=== PATIENT | female | born 1985 | race Caucasian/White ===

== ENCOUNTER 2017-11-03 12:51 | Emergency (ER) | payer OTHER ==
[2017-11-03 12:56] VITALS: BP 133/61; BMI 22.8
--- NOTE | 2017-11-03 13:39 | DR.GENAD ---
HPI - PCP Primary Care Physician: RELL - HPI Comment HPI Comment: Pt concerned she has the flu but doesn't want to take meds unless she is +. Pt 20 wks . Tamiflu cleared for her by her OB. - Complaint/Symptoms Chief Complaint:: PT C/O FEVER, CHILLS, AND BODY ACHES. PT STATES HER SON HAS BEEN DX WITH THE FLU YESTERDAY. PT IS ALSO 20 WKS . - Source History Provided: Patient - Mode of Arrival Mode of Arrival: Ambulatory - Timing Onset of Chief Complaint: 11/02/17 PMH - PMH Past Medical History: Yes (20 wks ) Past Medical History Comment: PELVIC MASS Past Surgical History: Yes Past Surgical History Comment: PELVIC MASS - Family History History of Family Medical Conditions: No - Social History Does any household member use tobacco: No Alcohol Use: None Do you use any recreational Drugs:: No Lives With: Family Lives Where: Home - infectious screening In the last 2 months have you had wt loss of >10#?: NO Have you had fever, night sweats or hemotysis?: No Have you traveled outside the country in the last 6 months?: No Isolation: Standard ROS - Review of Systems Constitutional: Chills, Fever, Malaise, Loss of Appetite Eyes: No Symptoms Reported ENTM: Nose Congestion, Throat Pain Respiratoy: Dry Cough Cardiovascular: No Symptoms Reported Gastrointestinal/Abdominal: No Symptoms Reported Genitourinary: No Symptoms Reported Neurological: Headache Musculoskeletal: See HPI, Joint Pain Integumentary: No Symptoms Reported Hematologic/Lymphatic: No Symptoms Reported Endocrine: No Symptoms Reported Psychiatric: No Symptoms Reported All Other Systems: Reviewed and Negative PE - Vital Signs Vitals: Temperature 99.0 F Pulse Rate 87 Respiratory Rate 20 Blood Pressure 133/61 O2 Sat by Pulse Oximetry 100 - General Limitations: No Limitations General Appearance: Alert, In No Apparent Distress - Head Head Exam: Normal Inspection - Eyes Eye exam: Normal Appearance - ENT ENT Exam: Normal Exam, Normal Oropharynx TM/Canal Exam: Bilateral Normal Nose Exam: Normal Nose Exam Mouth Exam: Normal Inspection Throat Exam: Normal Inspection. negative: Tonsillar Erythema, Tonsillar Exudate - Neck Neck Exam: Full ROM, Trachea Midline - Chest Chest Inspection: Normal Inspection - Respiratory Respiratory Exam: Normal Lung Sounds Bilat. negative: Accessory Muscle Use Respiratory Exam: Bilateral Clear to Auscultation - Cardiovascular Cardiovascular Exam: Regular Rate, Normal Rhythm - Abdominal Exam Abdominal Exam: Normal Inspection, Normal Bowel Sounds, Soft, Other (gravid). negative: Tenderness - Extremities Extremities Exam: Normal Inspection, Full ROM, Normal Capillary Refill. negative: Edema - Neurologic Neurological Exam: Alert, Oriented X3 - Psychiatric Psychiatric Exam: Normal Affect, Normal Mood - Skin Skin Exam: Warm, Dry, Intact ROR - Labs Reviewed Laboratory Results Reviewed?: Yes (flu screen neg) Laboratory: Influenza Type A (PCR) Negative (NEGATIVE) 11/03/17 13:07 Influenza Type B (PCR) Negative (NEGATIVE) 11/03/17 13:07 - Diagnosis Discharge Problem: Acute viral syndrome - Discharge Plan Disposition: HOME, SELF-CARE Condition: Stable Prescriptions: Oseltamivir Phosphate [Tamiflu] 75 mg PO BID #10 cap - Follow ups/Referrals Follow ups/Referrals: FLAKITO ZACARIAS [Primary Care Provider] - 3 days - Instructions
== END 2017-11-03 14:22 | disposition home or self-care (01) ==
LOC: ER 13:01
DX: B34.9 Viral infection, unspecified (principal); Z3A.20 20 weeks gestation of pregnancy
CPT/HCPCS: 87502; 99282

== ENCOUNTER 2018-01-29 19:07 | Emergency (ER) | payer OTHER ==
[2018-01-29 19:17] VITALS: BMI 26.6
[2018-01-29 19:44] LABS: BILIRUBIN,URINE NEGATIVE (NEGATIVE); BLOOD/HEMOGLOBIN,URINE NEGATIVE (NEGATIVE); GLUCOSE, URINE NEGATIVE (NEGATIVE); KETONES,URINE NEGATIVE (NEGATIVE); LEUKOCYTE ESTERASE ,URINE 1+ (NEGATIVE); NITRITES,URINE NEGATIVE (NEGATIVE); PROTEIN,URINE NEGATIVE (NEGATIVE); UROBILINOGEN,URINE NORMAL (NORMAL)
[2018-01-29 19:52] LABS: APPEARANCE,URINE CLEAR (CLEAR); BACTERIA,URINE TRACE /HPF (NEGATIVE); COLOR,URINE YELLOW (YELLOW); RBC,URINE NONE SEEN /HPF (NONE SEEN); SQUAMOUS EPITHELIAL CELL,UR MANY /HPF (NEGATIVE)
[2018-01-29 20:15] LABS: AMNISURE ROM TEST NO MEMBRANES RUPTURE (NO RUPTURE)
[2018-01-29 20:35] VITALS: BP 107/60
== END 2018-01-29 20:35 | disposition home or self-care (01) ==
LOC: ER 19:25
DX: O60.03 Preterm labor without delivery, third trimester (principal); Z3A.32 32 weeks gestation of pregnancy
CPT/HCPCS: 81001; 84112; 99284

== ENCOUNTER 2018-02-23 16:17 | Emergency (ER) | payer OTHER ==
[2018-02-23 16:42] VITALS: BP 113/64; BMI 26.8
[2018-02-23 17:14] LABS: BILIRUBIN,URINE NEGATIVE (NEGATIVE); BLOOD/HEMOGLOBIN,URINE 1+ (NEGATIVE); GLUCOSE, URINE 2+ (NEGATIVE); KETONES,URINE NEGATIVE (NEGATIVE); LEUKOCYTE ESTERASE ,URINE NEGATIVE (NEGATIVE); NITRITES,URINE NEGATIVE (NEGATIVE); PROTEIN,URINE NEGATIVE (NEGATIVE); UROBILINOGEN,URINE NORMAL (NORMAL)
[2018-02-23 17:38] LABS: APPEARANCE,URINE CLEAR (CLEAR); BACTERIA,URINE NEGATIVE /HPF (NEGATIVE); COLOR,URINE YELLOW (YELLOW); RBC,URINE 0-2 /HPF (NONE SEEN); SQUAMOUS EPITHELIAL CELL,UR MODERATE /HPF (NEGATIVE)
== END 2018-02-23 18:49 | disposition home or self-care (01) ==
LOC: ER 16:52
DX: O60.00 Preterm labor without delivery, unspecified trimester (principal); Z3A.00 Weeks of gestation of pregnancy not specified
CPT/HCPCS: 81001; 99284

== ENCOUNTER 2018-03-19 06:17 | Inpatient (IN) ==
[2018-03-19] MEDS ORDERED: LR 1000 ML IV 1,000 ML IV ONE (06:45)
[2018-03-19] MEDS ORDERED: ANCEF IV ONE (06:46)
[2018-03-19] MEDS ORDERED: D5 1/2 NS 1000 ML 1,000 ML IV SCH (06:54)
[2018-03-19] MEDS ORDERED: ANCEF VIAL 1 GRAM 1 G in NS 50 ML IV + SPIKE MINIBAG* 50 ML IV PRN (06:54)
[2018-03-19] MEDS ORDERED: DURAMORPH ONE (07:19)
[2018-03-19] MEDS ORDERED: D5 1/2 NS 1L W PITOCIN 20 UNITS/L 20 UNITS/1,000 ML BAG IV ONE (07:45)
[2018-03-19] MEDS ORDERED: PHENERGAN INJ 25 MG IVP PRN (08:46)
[2018-03-19] MEDS ORDERED: ZOFRAN INJ 4 MG VIAL IVP PRN (08:46)
[2018-03-19] MEDS ORDERED: BENADRYL INJ 50 MG VIAL IVP PRN (08:46)
[2018-03-19] MEDS ORDERED: REGLAN INJ 10 MG VIAL IVP PRN (08:46)
[2018-03-19] MEDS ORDERED: D5 1/2 NS 1000 ML 1,000 ML with PITOCIN 20 UNITS IV SCH ×2 (09:32)
[2018-03-19] MEDS ORDERED: PERCOCET TAB 5/325 MG PO PRN (09:32)
[2018-03-19] MEDS ORDERED: NARCAN INJ IVP PRN (09:32)
[2018-03-19] MEDS ORDERED: TORADOL 30 MG VIAL IVP PRN (09:32)
[2018-03-19] MEDS ORDERED: ADACEL or BOOSTRIX TDaP VACCINE IM ONE (09:32)
[2018-03-19] MEDS: BENADRYL INJ 50 MG VIAL IVP PRN ×2 (10:15→21:02)
[2018-03-19] MEDS: PRENATAL PLUS PO SCH (10:15)
[2018-03-19] MEDS: ZANTAC PO SCH ×2 (10:16→20:37)
[2018-03-19] MEDS ORDERED: VERSED ONE (15:49)
[2018-03-19] MEDS ORDERED: MARCAINE SPINAL ONE (15:49)
[2018-03-19] MEDS ORDERED: XYLOCAINE 1 % (PLAIN) ONE (15:49)
[2018-03-19] MEDS ORDERED: EPHEDRINE SULFATE INJ ONE (15:49)
[2018-03-19] MEDS ORDERED: PITOCIN ONE (15:49)
[2018-03-19] MEDS ORDERED: ZOFRAN INJ 4 MG VIAL ONE (15:49)
[2018-03-20] MEDS: MYLICON TAB 80 MG CHEW PO PRN (03:48)
[2018-03-20] MEDS: ZOFRAN INJ 4 MG VIAL IVP PRN ×2 (05:42→11:07)
[2018-03-20 05:47] LABS: HEMATOCRIT 36.9 % (36.0-47.0); HEMOGLOBIN 12.8 g/dL (12.0-16.0)
[2018-03-20] MEDS: REGLAN INJ 10 MG VIAL IVP PRN ×2 (06:21→19:43)
[2018-03-20] MEDS ORDERED: PERCOCET TAB 5/325 MG PO PRN (07:27)
[2018-03-20] MEDS: ZANTAC PO SCH ×2 (08:44→21:18)
[2018-03-20] MEDS ORDERED: BACTROBAN CREAM ONE (09:55)
[2018-03-20] MEDS: PRENATAL PLUS PO SCH (10:05)
[2018-03-20] MEDS: COLACE CAP 100 MG PO SCH ×2 (10:05→21:18)
[2018-03-20] MEDS: BACTROBAN TOPICAL OINT TOP SCH ×3 (10:05→21:18)
[2018-03-20] MEDS: MOTRIN TAB 800 MG PO PRN (10:14)
[2018-03-20] MEDS ORDERED: BENADRYL INJ 50 MG VIAL IVP ONE (20:12)
[2018-03-21] MEDS: ZOFRAN INJ 4 MG VIAL IVP PRN (01:57)
[2018-03-21] MEDS: MYLICON TAB 80 MG CHEW PO PRN (01:57)
[2018-03-21] MEDS: REGLAN INJ 10 MG VIAL IVP PRN ×2 (01:57→08:26)
[2018-03-21] MEDS: BACTROBAN TOPICAL OINT TOP SCH ×2 (05:43→15:17)
[2018-03-21 06:14] LABS: HEMATOCRIT 36.8 % (36.0-47.0); HEMOGLOBIN 12.5 g/dL (12.0-16.0)
[2018-03-21] MEDS: ZANTAC PO SCH (08:25)
[2018-03-21] MEDS: COLACE CAP 100 MG PO SCH (08:25)
[2018-03-21] MEDS: PRENATAL PLUS PO SCH (08:26)
[2018-03-21 12:34] VITALS: BP 109/66
[2018-03-21] MEDS: MOTRIN TAB 800 MG PO PRN (15:18)
== END 2018-03-21 16:25 | disposition home or self-care (01) | DRG 766 ==
LOC: LD 06:17 → MED/SURG 09:21
PROVIDERS: ADMIT Specialist; ATTEND Specialist
DX: Z30.2 Encounter for sterilization; D50.8 Other iron deficiency anemias; O99.02 Anemia complicating childbirth; Z37.0 Single live birth; Z3A.39 39 weeks gestation of pregnancy
CPT/HCPCS: 36415; 80048; 81001; 85014; 85018; 85025; 85610; 85730; 86592; 86850; 86900; 86901; 87086; 90715; A4222; S0197; J0690; J1200; J1885; J2250; J2405; J2590; J2765; J3490; J7120